=== PATIENT | male | born 1985 | race Two or more races ===

== ENCOUNTER 2021-12-02 03:31 | Emergency (ER) | payer BC, OTHER ==
[~2021-12-02] VITALS: Ht 167.6 cm; Wt 70.3 kg
[2021-12-02 06:58] VITALS: BP 104/61
[2021-12-02] MEDS ORDERED: KETOROLAC TROMETH 60MG/2ML VIAL IM ONE (07:15)
[2021-12-02] MEDS ORDERED: IBUP800T27 PO (07:40)
[2021-12-02] MEDS ORDERED: METH750T22 PO (07:40)
== END 2021-12-02 07:57 | disposition home or self-care (01) ==
LOC: EDBD 03:31 → ER 03:31
DX: S16.1XXA Strain of muscle, fascia and tendon at neck level, initial encounter (principal); S86.911A Strain of unspecified muscle(s) and tendon(s) at lower leg level, right leg, initial encounter; M62.838 Other muscle spasm; V43.52XA Car driver injured in collision with other type car in traffic accident, initial encounter; Y93.89 Activity, other specified; Y92.488 Other paved roadways as the place of occurrence of the external cause; Y99.8 Other external cause status
CPT/HCPCS: 70450; 72125; 73590; 96372; 99284; J1885; J7050